=== PATIENT | female | born 1985 | race African-American/Black ===

== ENCOUNTER 2022-12-24 13:12 | Emergency (ER) | payer OTHER ==
[~2022-12-24] VITALS: Ht 170.2 cm; Wt 102.6 kg
[2022-12-24] MEDS ORDERED: NEXIUM40 MG PO (13:56)
[2022-12-24] MEDS ORDERED: ALEVE220 M1 (13:56)
[2022-12-24] MEDS ORDERED: IBUPROFEN 600 MG TAB PO STA (14:24)
[2022-12-24] MEDS ORDERED: IBUPROFEN 600 MG TAB ONE (15:04)
== END 2022-12-24 16:14 | disposition home or self-care (01) ==
LOC: FSED 13:41
DX: S06.0X0A Concussion without loss of consciousness, initial encounter (principal); V53.5XXA Driver of pick-up truck or van injured in collision with car, pick-up truck or van in traffic accident, initial encounter; Y92.488 Other paved roadways as the place of occurrence of the external cause; K21.9 Gastro-esophageal reflux disease without esophagitis
CPT/HCPCS: 70450; 81025; 99283